=== PATIENT | female | born 1935 | race Caucasian/White ===

== ENCOUNTER 2016-09-02 10:38 | Inpatient (IN) | payer MEDICARE, OTHER ==
[~2016-09-02 10:38] MED LIST: ALBUTEROL; ASPIRIN EC325 M1 PO; AUGMENTIN 875-1 EAC1 PO; DARVOCET-N 1001 TAB PO; DOXY-LEMMON100 MG PO; ESTROGEN; MINERAL OIL PO; MULTIVITAMIN1 TAB PO; NORCO 5-325 TA1 EACH PO; NORCO 5/325 TAB1 TAB PO; PROAIR HFA8.5 GM INH; STOOL SOFTENER; VENTOLIN17 GM; VITAMIN D PO; [UNRECOGNIZED DRUG - REMARK] PO
[2016-09-02] MEDS ORDERED: SYMBICORT 160-1 PUFF INH (10:49)
[2016-09-02 11:32] LABS: EOS % 0.4 % (0-7); HCT-HEMATOCRIT 42.3 % (34.0-49.0); HGB-HEMOGLOBIN 14.2 gm/dl (12.0-15.5); IMMATURE GRANULOCYTES ABSOLUTE 0.03 tho/cmm (0-0.03); IMMATURE GRANULOCYTES PERCENT 0.3 % (0-0.3); LYMPH % 9.5 % (20-45); MCH (MEAN CORPUSCULAR HGB) 34.4 pg (28.0-32.0); MCHC MEAN CORPUSCULAR HGB CONC 33.6 % (32.0-36.0); MCV (MEAN CELL VOLUME) 102.4 fl (82.0-96.0); MEAN PLATELET VOLUME 9.8 cmc (9.4-12.4); MONO % 4.8 % (0-12); MONOCYTE ABSOLUTE COUNT 0.5 tho/cmm (0.0-1.2); NEUTROPHIL ABSOLUTE COUNT 8.7 tho/cmm (1.6-8.0); NEUTROPHIL-AUTOMATED 8.7 tho/cmm (1.6-8.0); PLATELET COUNT 132 tho/cmm (150-450); RED BLOOD COUNT 4.13 mil/cmm (4.00-5.20); RED CELL DISTRIBUTION WIDTH 13.3 % (12.4-16.4); WHITE BLOOD COUNT 10.2 tho/cmm (4.0-10.0)
[2016-09-02 11:47] LABS: ALB/GLOB RATIO 1.5 (0.8-2.0); ALBUMIN 3.7 g/dl (3.5-5.0); ALKALINE PHOSPHATASE 77 U/L (33-138); ALT/SGPT 28 U/L (12-78); ANION GAP 10 mmol/L (0-20); AST/SGOT 26 U/L (10-40); BILIRUBIN,TOTAL 0.6 mg/dl (0-1.5); BLOOD UREA NITROGEN 15 mg/dl (6-24); CALCIUM 8.2 mg/dl (8.5-10.5); CARBON DIOXIDE-VENOUS 30 mmol/L (22-32); CHLORIDE 104 mmol/l (96-110); CREATININE 0.86 mg/dl (0.50-1.10); GLUCOSE 140 mg/dL (70-110); POTASSIUM 4.8 mmol/L (3.7-5.1); SODIUM 139 mmol/L (135-145); eGFR VALUE FOR BLACK 74 mL/Min
[2016-09-02] MEDS ORDERED: MULTIVITAMINS1 EAC6 PO (12:24)
[2016-09-03 06:07] LABS: EOS % 0.2 % (0-7); HGB-HEMOGLOBIN 11.2 gm/dl (12.0-15.5); IMMATURE GRANULOCYTES ABSOLUTE 0.01 tho/cmm (0-0.03); IMMATURE GRANULOCYTES PERCENT 0.2 % (0-0.3); LYMPH % 16.2 % (20-45); LYMPH ABSOLUTE COUNT 0.9 tho/cmm (0.8-4.5); MCH (MEAN CORPUSCULAR HGB) 33.7 pg (28.0-32.0); MCHC MEAN CORPUSCULAR HGB CONC 32.9 % (32.0-36.0); MCV (MEAN CELL VOLUME) 102.4 fl (82.0-96.0); MEAN PLATELET VOLUME 9.5 cmc (9.4-12.4); MONO % 5.3 % (0-12); MONOCYTE ABSOLUTE COUNT 0.3 tho/cmm (0.0-1.2); NEUTROPHIL ABSOLUTE COUNT 4.4 tho/cmm (1.6-8.0); NEUTROPHIL-AUTOMATED 4.4 tho/cmm (1.6-8.0); NEUTROPHILS % 78.1 % (40-80); PLATELET COUNT 126 tho/cmm (150-450); RED BLOOD COUNT 3.32 mil/cmm (4.00-5.20); RED CELL DISTRIBUTION WIDTH 13.6 % (12.4-16.4); WHITE BLOOD COUNT 5.6 tho/cmm (4.0-10.0)
[2016-09-03 06:09] LABS: INR 0.9 INR (0.9-1.1); PROTHROMBIN TIME 10.8 SECONDS (9.0-13.6)
[2016-09-03 06:16] LABS: ANION GAP 10 mmol/L (0-20); BLOOD UREA NITROGEN 15 mg/dl (6-24); CALCIUM 7.8 mg/dl (8.5-10.5); CARBON DIOXIDE-VENOUS 28 mmol/L (22-32); CHLORIDE 103 mmol/l (96-110); CREATININE 0.64 mg/dl (0.50-1.10); GLUCOSE 118 mg/dL (70-110); POTASSIUM 4.5 mmol/L (3.7-5.1); SODIUM 136 mmol/L (135-145); eGFR VALUE FOR BLACK >90 mL/Min
[2016-09-04 06:37] LABS: IMMATURE GRANULOCYTES ABSOLUTE 0.01 tho/cmm (0-0.03); IMMATURE GRANULOCYTES PERCENT 0.2 % (0-0.3); LYMPH % 8.6 % (20-45); LYMPH ABSOLUTE COUNT 0.4 tho/cmm (0.8-4.5); MCV (MEAN CELL VOLUME) 99.1 fl (82.0-96.0); MEAN PLATELET VOLUME 9.4 cmc (9.4-12.4); MONO % 8.6 % (0-12); MONOCYTE ABSOLUTE COUNT 0.4 tho/cmm (0.0-1.2); NEUTROPHIL ABSOLUTE COUNT 4.3 tho/cmm (1.6-8.0); NEUTROPHIL-AUTOMATED 4.3 tho/cmm (1.6-8.0); NEUTROPHILS % 82.6 % (40-80); PLATELET COUNT 105 tho/cmm (150-450); RED BLOOD COUNT 2.34 mil/cmm (4.00-5.20); RED CELL DISTRIBUTION WIDTH 13.2 % (12.4-16.4); WHITE BLOOD COUNT 5.1 tho/cmm (4.0-10.0)
[2016-09-04 06:40] LABS: ANION GAP 9 mmol/L (0-20); BLOOD UREA NITROGEN 12 mg/dl (6-24); CALCIUM 7.4 mg/dl (8.5-10.5); CARBON DIOXIDE-VENOUS 28 mmol/L (22-32); CHLORIDE 101 mmol/l (96-110); CREATININE 0.54 mg/dl (0.50-1.10); GLUCOSE 135 mg/dL (70-110); POTASSIUM 4.4 mmol/L (3.7-5.1); SODIUM 134 mmol/L (135-145); eGFR VALUE FOR BLACK >90 mL/Min
[2016-09-04 06:46] LABS: HCT-HEMATOCRIT 23.2 % (34.0-49.0)
[2016-09-04 06:52] LABS: MCH (MEAN CORPUSCULAR HGB) 34.1 pg (28.0-32.0); MCHC MEAN CORPUSCULAR HGB CONC 34.5 % (32.0-36.0)
[2016-09-05 06:50] LABS: HGB-HEMOGLOBIN 6.5 gm/dl (12.0-15.5); IMMATURE GRANULOCYTES ABSOLUTE 0.01 tho/cmm (0-0.03); IMMATURE GRANULOCYTES PERCENT 0.3 % (0-0.3); LYMPH % 28.2 % (20-45); MCH (MEAN CORPUSCULAR HGB) 33.7 pg (28.0-32.0); MEAN PLATELET VOLUME 9.3 cmc (9.4-12.4); MONO % 8.5 % (0-12); MONOCYTE ABSOLUTE COUNT 0.3 tho/cmm (0.0-1.2); NEUTROPHIL ABSOLUTE COUNT 2.2 tho/cmm (1.6-8.0); NEUTROPHIL-AUTOMATED 2.2 tho/cmm (1.6-8.0); PLATELET COUNT 91 tho/cmm (150-450); RED BLOOD COUNT 1.93 mil/cmm (4.00-5.20); RED CELL DISTRIBUTION WIDTH 13.5 % (12.4-16.4); WHITE BLOOD COUNT 3.5 tho/cmm (4.0-10.0)
[2016-09-05 06:53] LABS: HCT-HEMATOCRIT 19.3 % (34.0-49.0); MCHC MEAN CORPUSCULAR HGB CONC 33.7 % (32.0-36.0)
[2016-09-06 05:31] LABS: HGB-HEMOGLOBIN 9.2 gm/dl (12.0-15.5)
== END 2016-09-06 13:42 | DRG 481 ==
LOC: EDMED 10:38 → EMR2 13:29 → 5EC 14:52
PROVIDERS: Emergency Medicine; Hospitalist; Orthopaedic Surgery Orthopaedic Surgery of the Spine; Physician Assistant; ADMIT Family Medicine
PROC: 0QH706Z Insertion of Intramedullary Internal Fixation Device into Left Upper Femur, Open Approach (ICD-10-PCS; principal; 2016-09-03)
PROC: 0QPC04Z Removal of Internal Fixation Device from Left Lower Femur, Open Approach (ICD-10-PCS; 2016-09-03)
PROC: 30233N1 Transfusion of Nonautologous Red Blood Cells into Peripheral Vein, Percutaneous Approach (ICD-10-PCS; 2016-09-04)
PROC: 30233N1 Transfusion of Nonautologous Red Blood Cells into Peripheral Vein, Percutaneous Approach (ICD-10-PCS; 2016-09-04)
DX: S72.142A Displaced intertrochanteric fracture of left femur, initial encounter for closed fracture (principal); D62 Acute posthemorrhagic anemia; D69.6 Thrombocytopenia, unspecified; L76.32 Postprocedural hematoma of skin and subcutaneous tissue following other procedure; J45.909 Unspecified asthma, uncomplicated; M54.9 Dorsalgia, unspecified; K21.9 Gastro-esophageal reflux disease without esophagitis; Y83.8 Other surgical procedures as the cause of abnormal reaction of the patient, or of later complication, without mention of misadventure at the time of the procedure; Y79.8 Miscellaneous orthopedic devices associated with adverse incidents, not elsewhere classified; Y92.239 Unspecified place in hospital as the place of occurrence of the external cause; W07.XXXA Fall from chair, initial encounter; Y93.E9 Activity, other interior property and clothing maintenance; Y92.090 Kitchen in other non-institutional residence as the place of occurrence of the external cause; Z88.0 Allergy status to penicillin; Z87.891 Personal history of nicotine dependence; Z90.710 Acquired absence of both cervix and uterus
CPT/HCPCS: C1713; J1170; J2405; J7030; J7050; P9016